=== PATIENT | male | born 1975 | race Two or more races ===

== ENCOUNTER 2021-09-06 20:59 | Emergency (ER) | payer SELFPAY ==
[~2021-09-06] VITALS: Ht 177.8 cm; Wt 72.6 kg
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
[2021-09-06] MEDS ORDERED: CYCL5TAB PO (21:35)
[2021-09-06] MEDS ORDERED: IBUP-1955 PO (21:35)
[2021-09-06 21:43] VITALS: BP 133/82
--- NOTE | 2021-09-06 21:43 | NUR ---
Patient discharged to home in stable condition. Written and verbal after care instructions given. Patient verbalizes understanding of instruction. Pt ambulatory with a steady gait
== END 2021-09-06 21:45 | disposition home or self-care (01) ==
LOC: ER 21:03
DX: R51.9 Headache, unspecified (principal); M54.2 Cervicalgia; M54.9 Dorsalgia, unspecified; V43.52XA Car driver injured in collision with other type car in traffic accident, initial encounter; Y93.89 Activity, other specified; Y92.410 Unspecified street and highway as the place of occurrence of the external cause; Y99.8 Other external cause status